=== PATIENT | male | born 1955 | race Caucasian/White ===

== ENCOUNTER 2017-03-25 10:55 | Day surgery (SDC) | payer BC ==
[2017-03-25] MEDS ORDERED: LACTATED RINGERS 1,000 ML ONE (11:36)
[2017-03-25] MEDS ORDERED: IV START KIT ONE (11:37)
[2017-03-25] MEDS ORDERED: MIDAZOLAM HCL 5 MG/5 ML VIAL ONE (12:24)
[2017-03-25] MEDS ORDERED: FENTANYL 250 MCG/5 ML AMP ONE (12:25)
[2017-03-25] MEDS ORDERED: MIDAZOLAM HCL 5 MG/5 ML VIAL IV PRN (12:25)
[2017-03-25] MEDS ORDERED: FENTANYL 250 MCG/5 ML AMP IV PRN (12:25)
[2017-03-25] MEDS ORDERED: LACTATED RINGERS 1,000 ML IV SCH (12:30)
== END 2017-03-25 13:30 | disposition home or self-care (01) ==
LOC: SDC 10:55
PROVIDERS: ATTEND Family Medicine
PROC: 0DJD8ZZ Inspection of Lower Intestinal Tract, Via Natural or Artificial Opening Endoscopic (ICD-10-PCS; principal; 2017-03-25)
DX: Z12.11 Encounter for screening for malignant neoplasm of colon (principal); K57.30 Diverticulosis of large intestine without perforation or abscess without bleeding; Z86.010 Personal history of colon polyps; Z83.71 Family history of colonic polyps; E78.2 Mixed hyperlipidemia; J30.1 Allergic rhinitis due to pollen; B35.3 Tinea pedis
CPT/HCPCS: 45378; J3010; J2250; J7120